=== PATIENT | female | born 1955 | race African-American/Black ===

== ENCOUNTER 2019-08-02 13:36 | Inpatient (IN) | payer OTHER ==
[~2019-08-02] VITALS: Ht 162.6 cm; Wt 84.0 kg
[2019-08-02 13:36] VITALS: BP 105/68
[2019-08-02 15:10] LABS: HEMATOCRIT 43.1 % (37.0-47.0); HEMOGLOBIN 14.2 gm/dL (12.0-15.0); MCH 26.1 pg (26.0-34.0); MCHC 32.9 g/dL (28.0-37.0); MCV 79.2 fL (80.0-100.0); PLATELET COUNT 249 thou/uL (150-400); RBC 5.45 mil/uL (4.20-5.00); RDW 14.9 % (10.5-14.5); WBC 4.3 thou/uL (4.0-11.0)
[2019-08-02 15:49] LABS: ALBUMIN 4.3 g/dL (3.4-5.0); CALCIUM 9.7 mg/dL (8.5-10.1); CREATININE 1.3 mg/dL (0.6-1.0); MAGNESIUM 2.4 mg/dL (1.8-2.4); TOTAL BILIRUBIN 1.1 mg/dL (<0.1-1.0); TOTAL PROTEIN 8.5 g/dL (6.4-8.2)
[2019-08-02 15:54] LABS: POTASSIUM 2.6 mmol/L (3.5-5.1)
[2019-08-02 16:04] LABS: URINE BILIRUBIN NEGATIVE (Negative); URINE BLOOD NEGATIVE (Negative); URINE CLARITY CLEAR; URINE COLOR YELLOW; URINE GLUCOSE-RANDOM* NEGATIVE (Negative); URINE KETONES NEGATIVE (Negative); URINE LEUKOCYTES-REFLEX TRACE (Negative); URINE NITRITE-REFLEX NEGATIVE (Negative); URINE PROTEIN (DIPSTICK) NEGATIVE (Negative); URINE SPECIFIC GRAVITY <= 1.005 (1.005-1.035); URINE UROBILINOGEN 0.2 E.U./dl (0.2-1.0)
[2019-08-02 16:09] LABS: ABSOLUTE NEUTROPHILS 2.7 thou/uL (1.4-8.2)
[2019-08-02 19:22] VITALS: BP 109/72
[2019-08-02 20:03] LABS: % SATURATION 23 % (20-39); IRON 68 ug/dL (50-170); TIBC 292 ug/dL (250-450)
[2019-08-02 20:05] VITALS: BP 108/72
[2019-08-02 20:25] VITALS: BP 101/73
[2019-08-02] MEDS ORDERED: LASIX 40 MG TAB40 MG PO (20:30)
[2019-08-02] MEDS ORDERED: FOLIC ACID1 MG PO (20:31)
[2019-08-02] MEDS ORDERED: METHOTREXATE 22.5 M1 PO (20:31)
[2019-08-02] MEDS ORDERED: SIMVASTATIN80 MG PO (20:32)
[2019-08-02] MEDS ORDERED: LISINOPRIL2.5 MG PO (20:33)
[2019-08-02] MEDS ORDERED: HYDROCHLOROTHIA25 M2 PO (20:34)
--- NOTE | 2019-08-03 02:56 | NUR ---
ASSUMED CARE FROM ER, ASSESSMENT AND DATA BASE COMPLETED. SISTER DPOA AT BEDSIDE, BED ALRM ON FOR SAFETY, IV FLUID STARTED. DENIES PAIN AT THIS TIME , NO DIARRHEA NOTED, ISOLATION CART TO ROOM FOR POSSIBLE C-DIFF, STOOL SAMPLE PENDING COLLECTION. DICUSSED PLAN OF CARE WITH PT AND SISTER , PT NPO PENDING GI TEST IN AM. WILL CONINTUE WITH CURRENT PLAN OF CARE AND WILL REPORT CHANGES.
[2019-08-03 03:53] LABS: CALCIUM 8.5 mg/dL (8.5-10.1); CREATININE 1.1 mg/dL (0.6-1.0); POTASSIUM 3.2 mmol/L (3.5-5.1)
[2019-08-03 04:38] VITALS: BP 90/62
[2019-08-03 07:28] VITALS: BP 101/66
--- NOTE | 2019-08-03 10:48 | NUR ---
PT A&OX4. AMBULATES WITH STAND BY ASSIST. IV INTACT IN L AC INFUSING FLUIDS W/O COMPS. PT NPO SINCE MN. EGD HAS BEEN ORDERED FOR TODAY. SISTER AT BEDSIDE. WILL CONT POC.
[2019-08-03 16:20] VITALS: BP 122/70
[2019-08-03 19:40] VITALS: BP 109/67
[2019-08-04 04:10] VITALS: BP 116/84
--- NOTE | 2019-08-04 08:00 | NUR ---
ASSUMED PT CARE AT 1700. PT REPORTS NO PAIN BESIDES SMALL HEADACHE IN THE MIDDLE OF THE NIGHT, TYLENOL GIVEN AND PROVIDED RELIEF. STILL ON ISO DUE TO POS C DIFF, NO BM OVERNIGHT. UP AD DEVON. ANTIBIOTICS AND FLUIDS RUNNING PER ORDER. NO OTHER SIGNIFICANT CHANGES.
[2019-08-04 09:15] VITALS: BP 122/82
--- NOTE | 2019-08-04 15:04 | NUR ---
ASSUMED CARE OF THE PT AT 0700. PER DOCTOR BS CAN BE D/C'D. PT ON ISOLATION FOR MRSA, AWAITING STOOL SAMPLE FOR THE LAB. PER DOCTOR PT WILL UNDERGO A COLONOSCOPY TOMORROW AND WILL PREP FOR TOMORROW. PT IS AMBULATORY. PT IS ON A CLEAR LIQUID DIET. BED IN LOWEST POSITION AND CALL LIGHT IS WITHIN REACH. WILL CONTINUE TO MONITOR THE PT.
[2019-08-04 18:47] VITALS: BP 135/88
[2019-08-04 21:00] VITALS: BP 165/98
[2019-08-05 04:05] VITALS: BP 102/45
--- NOTE | 2019-08-05 06:03 | NUR ---
ASSESSMENT DOCUMENTED.PT A/OX4,W/O ACUTE DISTRESS.VSS.PT TOLERATED BOWEL PREP FOR COLONOSCOPY TODAY.PT PASSING CLEAR LIQUID.DENIES ANY DISCOMFORT.UP TO BSC W/ASSIST.IVF AND ABT INFUSING,TOLERATING.PT'S SISTER AT BEDSIDE.NO CONCERNS VOICED AT THIS TIME.WILL CONT TO MONITOR PER POC.
[2019-08-05 08:27] VITALS: BP 144/92
[2019-08-05] MEDS ORDERED: FLORANEX GRANU1 EACH PO (11:17)
[2019-08-05] MEDS ORDERED: METRONIDAZOLE500 M4 PO (11:17)
[2019-08-05] MEDS ORDERED: CIPRO500 M1 PO (11:17)
[2019-08-05] MEDS ORDERED: PROTONIX40 M2 PO (11:17)
[2019-08-05 13:22] LABS: CALCIUM 7.9 mg/dL (8.5-10.1); CREATININE 0.8 mg/dL (0.6-1.0); POTASSIUM 4.4 mmol/L (3.5-5.1)
--- NOTE | 2019-08-05 14:22 | NUR ---
ASSUMED CARE OF THE PT AT 0700. PT IS AMBULATORY. COLONOSCOPY DONE IN THE AM. C DIFF RESULTS WERE PENDING IN THE AM. R FOREARM DRY AND INTACT. L AC INFILTRATED YESTERDAY, NO SWELLING IN THE ARM. PER DOCTOR ISOLATION WAS REMOVED, PT CAN DISCHARGE AFTER EATING LUNCH AND IS TOLERATED WELL. PT TOLERATED LUNCH WELL. CALL LIGHT IS WITHIN REACH AND BED IN LOWEST POSITION. WILL CONTINUE TO MONITOR THE PT.
[2019-08-05 14:35] VITALS: BP 144/92
--- NOTE | 2019-08-06 18:07 | PATH ---
[facility] [address] [place] [address] PATHOLOGY RPT PROCEDURE Name: DEBRA JOHNSON Room #: 438-P DIS IN M.R.#: [id number] Admission: 08/02/19 Date of : 53 Discharge: 08/05/19 Report #: [id number] Path Case #: [id number] [facility] Accession Number: [id number] . 01 Material submitted: . stomach - BX OF ANTRUM . 01 Clinical history: . . Hematemesis rule H. pylori . 02 Diagnosis: Gastric mucosa, antrum to rule out H. pylori, endoscopic biopsy: - Mild reactive gastropathy. - Negative for intestinal metaplasia or atrophy. - Negative for Helicobacter pylori (properly controlled immunohistochemical stain performed). (IUV:pit 08/06/2019) QTP 08/06/2019 1208 Local . 02 Electronically signed: . Margi Chou MD, Pathologist NPI- [id number] . 01 Gross description: . The specimen is received in formalin, labeled "Debra Johnson, BX of antrum" and consists of 2 fragments of pink-granados tissue measuring 0.6 x 0.2 cm each which are entirely submitted in A1. (SDY; 08/03/2019) SYU/SYU 08/03/2019 1626 Local . 02 Pathologist provided ICD-10: K31.9 . 02 CPT . 290384, [id number] Specimen Comment: A courtesy copy of this report has been sent to [phone] Specimen Comment: [phone] Specimen Comment: Report sent to and Performed at: 01 [place] [id number] [id number] MD Murtaza Angelo MD Phone: [phone] Performed at: [address] [id number] [address] [address] PATHOLOGY RPT PROCEDURE Name: DEBRA JOHNSON Room #: 438-P DIS IN M.R.#: [id number] Admission: 08/02/19 Date of : 53 Discharge: 08/05/19 Report #: [id number] Path Case #: [id number] MD Margi Chou MD Phone: [phone]
--- NOTE | 2019-08-07 16:07 | PATH ---
[facility] [address] [address] PATHOLOGY RPT PROCEDURE Name: DEBRA JOHNSON Room #: 438-P DIS IN M.R.#: [id number] Admission: 08/02/19 Date of : 53 Discharge: 08/05/19 Report #: [id number] Path Case #: [id number] [facility] Accession Number: [id number] . 01 Material submitted: . colon - RANDOM BIOPSY OF COLON R/O INFECTIOUS AND INFLAMMATORY COLITIS . 01 Clinical history: . Diarrhea; R/O infectious and inflammatory colitis . 02 Diagnosis: Large intestinal mucosa, random colon, endoscopic biopsy: - Mild active cryptitis/colitis. - Negative for dysplasia or malignancy. (IUV:inorganic chemical technician; 08/07/2019) MBR 08/07/2019 1157 Local . 02 Comment: Sections of the colonic mucosa designated "random colon" show focal cryptitis, and a moderately cellular lamina propria composed predominantly of lymphocytes and plasma cells and occasional eosinophils. Surface ulceration is not identified. There are no crypt abscesses, granulomas or viral inclusions. The process affects all the fragments with a similar intensity. Given the description, the differential diagnosis includes focal active self-limited episode of colitis, acute diverticulitis, medication/drug induced colitis, as well as an early inflammatory bowel disease. Please correlate clinically and followup as indicated. (IUV:inorganic chemical technician; 08/07/2019) . 02 Electronically signed: . Margi Chou MD, Pathologist NPI- [id number] . 01 Gross description: . The specimen is received in formalin, labeled "Debra Johnson, random biopsy of colon, R/O infectious and inflammatory colitis". Received are multiple (greater than 10) segments of pale granados soft tissue ranging in size from 0.2 to 0.5 cm in maximum dimensions. The specimen is submitted entirely in cassette A1. (CAA; 08/06/2019) QA/[facility] 08/06/2019 1658 Local . 02 Pathologist provided ICD-10: K52.9 . 02 CPT . 840251 [address] [address] PATHOLOGY RPT PROCEDURE Name: DEBRA JOHNSON Room #: 438-P DIS IN M.R.#: [id number] Admission: 08/02/19 Date of : 53 Discharge: 08/05/19 Report #: [id number] Path Case #: [id number] Specimen Comment: A courtesy copy of this report has been sent to [phone] Specimen Comment: Report sent to Performed at: [address] [facility], [place], [place] [id number] MD Murtaza Angelo MD Phone: [phone] Performed at: [address] [facility] [id number] MD Margi Chou MD Phone: [phone]
== END 2019-08-05 14:56 | disposition home or self-care (01) | DRG 386 ==
LOC: ER 13:36 → EROBS 18:29 → 4S 18:29
PROVIDERS: Emergency Medicine Emergency Medical Services; Internal Medicine Gastroenterology; ADMIT Hospitalist
PROC: 0DB78ZX Excision of Stomach, Pylorus, Via Natural or Artificial Opening Endoscopic, Diagnostic (ICD-10-PCS; principal; 2019-08-03)
PROC: 0DBE8ZX Excision of Large Intestine, Via Natural or Artificial Opening Endoscopic, Diagnostic (ICD-10-PCS; 2019-08-05)
DX: K51.00 Ulcerative (chronic) pancolitis without complications (principal); N17.9 Acute kidney failure, unspecified; E87.3 Alkalosis; A09 Infectious gastroenteritis and colitis, unspecified; E87.6 Hypokalemia; M06.9 Rheumatoid arthritis, unspecified; I10 Essential (primary) hypertension; E78.5 Hyperlipidemia, unspecified; I34.0 Nonrheumatic mitral (valve) insufficiency; K22.2 Esophageal obstruction; K63.89 Other specified diseases of intestine; K31.89 Other diseases of stomach and duodenum; K44.9 Diaphragmatic hernia without obstruction or gangrene; E87.8 Other disorders of electrolyte and fluid balance, not elsewhere classified; K57.30 Diverticulosis of large intestine without perforation or abscess without bleeding; Z82.49 Family history of ischemic heart disease and other diseases of the circulatory system; Z83.3 Family history of diabetes mellitus; Z80.0 Family history of malignant neoplasm of digestive organs; Z80.8 Family history of malignant neoplasm of other organs or systems; Z79.899 Other long term (current) drug therapy
CPT/HCPCS: 10195; 62110; 62900; 70005